=== PATIENT | female | born 1965 | race American Indian/Alaskan Native ===

== ENCOUNTER 2019-11-24 14:26 | Inpatient (IN) | payer OTHER ==
--- NOTE | 2019-11-24 15:14 | Event Note ---
ED Screening Note ED Screening Note: Dx'd with ventral hernia on Sunday Hesham Gongora, appt today 4:30 PM, due to severe pain, came to [facility] This initial assessment/diagnostic orders/clinical plan/treatment(s) is/are subject to change based on patients health status, clinical progression and re- assessment by fellow clinical providers in the ED. Further treatment and workup at subsequent clinical providers discretion. Patient/guardian urged not to elope from the ED as their condition may be serious if not clinically assessed and managed. Initial orders include: labs
[2019-11-24 15:50] LABS: Basophils % (Auto) 0.5 % (0.0-1.8); Eosinophils % (Auto) 0.2 % (0.0-4.3); Hemoglobin 15.2 gm/dl (10.1-14.3); Lymphocytes # (Auto) 1.4 K/mm3 (1.2-5.4); Lymphocytes % (Auto) 14.8 % (13.4-35.0); Mean Corpuscular HGB Conc 32 % (30-34); Mean Corpuscular Volume 72 fl (79-97); Monocytes # (Auto) 0.7 K/mm3 (0.0-0.8); Platelet Count 239 K/mm3 (140-440); Red Blood Count 6.65 M/mm3 (3.65-5.03); Red Cell Distribution Width 14.7 % (13.2-15.2)
[2019-11-24 16:11] LABS: BUN/Creatinine Ratio 24; Blood Urea Nitrogen 19 mg/dL (7-17); Calcium 9.8 mg/dL (8.4-10.2); Hemolysis Index 10
[2019-11-24] MEDS ORDERED: ONDANSETRON 4 MG/2 ML INJ IV ONE (23:45)
[2019-11-24] MEDS ORDERED: MORPHINE 2 MG/1 ML INJ IV ONE (23:45)
[2019-11-24] MEDS ORDERED: SODIUM CHLORIDE 0.9% 1000 ML 1,000 ML IV ONE (23:45)
--- NOTE | 2019-11-25 00:31 | Emergency Department Report ---
ED Abdominal Pain HPI - General Chief Complaint: Nausea/Vomiting/Diarrhea Stated Complaint: HERNIA REPAIR 11/21/PAIN Time Seen by Provider: 11/24/19 23:34 Source: patient Mode of arrival: Wheelchair Limitations: No Limitations - History of Present Illness Initial Comments: 54-year-old female presents to ED with complaint of abdominal pain. Patient states 3 days ago she began having mid abdominal pain, she was seen at an [place] [facility] and diagnosed with a ventral hernia. Patient states she was seen by the surgeon in the ER, states he was unable to reduce the hernia and advised her to see him in his office on today at 430. Patient states she has been taking pain medication at home, but states her abdominal pain became worse this afternoon, she decided to come to the emergency room instead of go to her appointment. MD Complaint: abdominal pain -: days(s) (3) Location: periumbilical Radiation: none Migration to: no migration Severity: severe Severity scale (0 -10): 10 Quality: aching, sharp Consistency: constant Improves With: nothing Worsens With: nothing Associated Symptoms: nausea, vomiting - Related Data Allergies Allergy/AdvReac Type Severity Reaction Status Date / Time acetaminophen [From Fioricet] Allergy Unknown Verified 11/25/19 03:49 butalbital [From Fioricet] Allergy Unknown Verified 11/25/19 03:49 caffeine [From Fioricet] Allergy Unknown Verified 11/25/19 03:49 oxycodone [From Percocet] Allergy Unknown Verified 11/25/19 03:49 ED Review of Systems ROS: Stated complaint: HERNIA REPAIR 11/21/PAIN Other details as noted in HPI Comment: All other systems reviewed and negative Constitutional: denies: chills, fever Gastrointestinal: abdominal pain, nausea, vomiting ED Past Medical Hx - Past Medical History Previous Medical History?: Yes Hx Diabetes: Yes - Surgical History Past Surgical History?: Yes Additional Surgical History: Hernia repair on 11/21/19 - Social History Smoking Status: Never Smoker Substance Use Type: None ED Physical Exam - General Limitations: No Limitations General appearance: alert, in no apparent distress, obese - Head Head exam: Present: atraumatic, normocephalic - Eye Eye exam: Present: normal appearance - ENT ENT exam: Present: mucous membranes moist - Neck Neck exam: Present: normal inspection - Respiratory Respiratory exam: Present: normal lung sounds bilaterally. Absent: respiratory distress - Cardiovascular Cardiovascular Exam: Present: normal rhythm, tachycardia - GI/Abdominal GI/Abdominal exam: Present: soft, tenderness, hernia (ventral). Absent: distended - Extremities Exam Extremities exam: Present: normal inspection - Neurological Exam Neurological exam: Present: alert, oriented X3 - Psychiatric Psychiatric exam: Present: normal affect, normal mood - Skin Skin exam: Present: warm, dry, intact, normal color ED Course Vital Signs 11/24/19 11/24/19 11/25/19 15:20 22:09 02:35 Temperature 98.1 F 98.6 F Pulse Rate 105 H 101 H 71 Respiratory 18 18 18 Rate Blood Pressure 121/77 132/87 Blood Pressure 153/75 [Right] O2 Sat by Pulse 100 96 99 Oximetry 11/25/19 03:41 Temperature Pulse Rate Respiratory 16 Rate Blood Pressure Blood Pressure [Right] O2 Sat by Pulse 99 Oximetry - Consultations Consultation #1: 11/25/19 01:55 Attempted reduction of pt's hernia, but unsuccessful. Spoke with Dr Curry. States place an NG tube. She will review the scans. 11/25/19 03:30 Dr Curry currently at bedside. Unable to reduce hernia. Will take pt to OR. ED Medical Decision Making - Lab Data Result diagrams: 11/24/19 15:38 11/24/19 15:38 - Radiology Data Radiology results: report reviewed, image reviewed - Medical Decision Making 54-year-old female with incarcerated ventral hernia and subsequent small bowel obstruction. NG tube placed. Patient seen by Dr. Curry who will be taken her to the OR. Vitals are stable. Patient is afebrile. Patient will be admitted by the hospitalist, Dr Conroy, for further management. - Differential Diagnosis bowel obstruction, incarcerated hernia Critical care attestation.: If time is entered above; I have spent that time in minutes in the direct care of this critically ill patient, excluding procedure time. ED Disposition Clinical Impression: Small bowel obstruction, Ventral hernia with bowel obstruction Disposition: OP ADMIT IP TO THIS HOSP Is pt being admited?: Yes Condition: Stable Time of Disposition: 03:08
--- NOTE | 2019-11-25 01:03 | Cat Scan Report ---
CT abdomen pelvis w con INDICATION: abd pain, ventral hernia. TECHNIQUE: All CT scans at this location are performed using the following dose modulation technique: Automated exposure control. Helical slices were obtained through the abdomen and pelvis. 100 cc of Omnipaque 30 0 is administered. COMPARISON: None available. FINDINGS: Abdomen: No acute abnormality is seen in the lower chest. The liver, spleen, pancreas, adrenal glands , and kidneys show no acute abnormality. There is a ventral hernia containing loop of small bowel. Th is causes a relatively high-grade mechanical small bowel obstruction. Pelvis: There calcified masses within the uterus characteristic of calcified fibroids. There is no ab scess. There is no free air. There is no adenopathy. On review of bone windows, no acute osseous abnormalities are seen. IMPRESSION: 1. There is a ventral hernia containing a loop of small bowel. This results in a high-grade mechanica l small bowel obstruction. Signer Name: Barry Solis MD Signed: 11/25/2019 12:59 AM Workstation Name: [id number]
[2019-11-25] MEDS ORDERED: MORPHINE 2 MG/1 ML INJ IV ONE (01:31)
[2019-11-25] MEDS ORDERED: METOCLOPRAMIDE 10 MG/2 ML INJ ONE (03:00)
[2019-11-25] MEDS ORDERED: METOCLOPRAMIDE 10 MG/2 ML INJ IV ONE (03:10)
--- NOTE | 2019-11-25 03:51 | Consultation ---
History of Present Illness Consult date: 11/25/19 Reason for consult: abdominal pain Chief complaint: abdominal pain - History of present illness History of present illness: 54 yo F with past medical history of asthma, morbid obesity, diabetes, hypertens ion who presented to the emergency room with 3 days of worsening supraumbilical abdominal pain. The pain is sharp and does not radiate. She states that when the pain started, she presented to an outside hospital emergency room at which time she was found to have a ventral hernia. Apparently she was seen by a surgeon and was told the hernia was reducible. Patient states she was supposed to follow-up with the surgeon yesterday afternoon, however started to experience nausea and vomiting and therefore presented to the [facility] emergency room. The emesis was nonbloody. She has never had symptoms like this before. She has been having a little bit of flatus and had a very small BM yesterday. No fevers, chills, chest pain, shortness of breath. Patient is on Invokana, losartan potassium, eyedrops for glaucoma, pravastatin, Ventolin inhaler as needed. Past History Past Medical History: diabetes, hypertension, hyperlipidemia, other (Asthma, herniated lumbar disks, glaucoma) Past Surgical History: hernia repair (Open umbilical - 2006), Other (Lumbar disc surgery, uterine artery embolization) Social history: no significant social history Family history: no significant family history Medications and Allergies Allergies Allergy/AdvReac Type Severity Reaction Status Date / Time acetaminophen [From Fioricet] Allergy Unknown Verified 11/25/19 03:49 butalbital [From Fioricet] Allergy Unknown Verified 11/25/19 03:49 caffeine [From Fioricet] Allergy Unknown Verified 11/25/19 03:49 oxycodone [From Percocet] Allergy Unknown Verified 11/25/19 03:49 Review of Systems All systems: negative (10 point review of systems was performed and negative except for that listed in HPI) Exam Vital Signs Temp Pulse Resp BP Pulse Ox 98.1 F 105 H 18 121/77 100 11/24/19 15:20 11/24/19 15:20 11/24/19 15:20 11/24/19 15:20 11/24/19 15:20 Narrative exam: General: Awake, alert, oriented x3. Moderate distress due to pain ENT: No scleral icterus or conjunctival pallor. An 18 Kiswahili NG tube is present in the right nare with bilious drainage CV: S1, S2 present Respiratory: No audible wheezes Abdomen: Soft, obese, tenderness to palpation supraumbilical and periumbilical. There is a supraumbilical ventral hernia that is moderately tender to palpation during attempt at reduction, firm, and cannot be reduced. There are no skin changes. There is a well-healed surgical scar at the umbilicus. Extremities: No clubbing, cyanosis, edema Results - Labs 11/24/19 15:38 11/24/19 15:38 Abnormal lab results 11/24/19 11/24/19 Range/Units 15:38 15:38 RBC 6.65 H (3.65-5.03) M/mm3 Hgb 15.2 H (10.1-14.3) gm/dl Hct 48.0 H (30.3-42.9) % MCV 72 L (79-97) fl MCH 23 L (28-32) pg Carlton % (Auto) 8.0 H (0.0-7.3) % Seg Neutrophils % 76.5 H (40.0-70.0) % Chloride 94.2 L (98-107) mmol/L Carbon Dioxide 21 L (22-30) mmol/L BUN 19 H (7-17) mg/dL Glucose 169 H (65-100) mg/dL Diabetes panel 11/24/19 Range/Units 15:38 Sodium 138 (137-145) mmol/L Potassium 3.7 (3.6-5.0) mmol/L Chloride 94.2 L (98-107) mmol/L Carbon Dioxide 21 L (22-30) mmol/L BUN 19 H (7-17) mg/dL Creatinine 0.8 (0.7-1.2) mg/dL Glucose 169 H (65-100) mg/dL Calcium 9.8 (8.4-10.2) mg/dL Calcium panel 11/24/19 Range/Units 15:38 Calcium 9.8 (8.4-10.2) mg/dL Pituitary panel 11/24/19 Range/Units 15:38 Sodium 138 (137-145) mmol/L Potassium 3.7 (3.6-5.0) mmol/L Chloride 94.2 L (98-107) mmol/L Carbon Dioxide 21 L (22-30) mmol/L BUN 19 H (7-17) mg/dL Creatinine 0.8 (0.7-1.2) mg/dL Glucose 169 H (65-100) mg/dL Calcium 9.8 (8.4-10.2) mg/dL Adrenal panel 11/24/19 Range/Units 15:38 Sodium 138 (137-145) mmol/L Potassium 3.7 (3.6-5.0) mmol/L Chloride 94.2 L (98-107) mmol/L Carbon Dioxide 21 L (22-30) mmol/L BUN 19 H (7-17) mg/dL Creatinine 0.8 (0.7-1.2) mg/dL Glucose 169 H (65-100) mg/dL Calcium 9.8 (8.4-10.2) mg/dL - Imaging CT scan - abdomen: report reviewed, image reviewed CT scan - pelvis: report reviewed, image reviewed Assessment and Plan 54-year-old female with 1. incarcerated ventral hernia 2. SBO 2/2 #1 Plan: 1. admit to hospitalist service 2. NPO 3. IVF 4. NGT to LIWS - 1300 cc of bilious fluid aspirated immediately upon insertion 5. DVT ppx 6. prn pain and nausea control 7. glucose control per 1' 8. Recommend OR for incarcerated ventral hernia with SBO as it could not be reduced at bedside. Discussed the procedure indication, risks, benefits, alternatives with the patient in detail. We discussed the possibility of a bowel resection if the small bowel incarcerated in the hernia is not viable. All questions were answered. Consent obtained for diagnostic laparoscopy, possible exploratory laparotomy, possible bowel resection, ventral hernia repair, possible mesh. Thank you for this consultation. Please call with any questions or concerns.
--- NOTE | 2019-11-25 03:59 | History and Physical Report ---
History of Present Illness Date of examination: 11/25/19 Date of admission: 11/25/19 Chief complaint: Abdominal pain History of present illness: Patient is a 54-year-old female with a past medical history of asthma, diabetes, hypertension and glaucoma who presents to ER with complaints of nausea, vomiting and abdominal pain since Sunday. Patient reports going to [facility] 11/21/19 where she states she was treated with pain and nausea medicine and discharged with an outpatient surgery follow-up appointment for 11/24/19 for a ventral hernia. Patient states worsening abdominal pain today so she was unable to make it to appointment and decided to come to the ER. She describes the pain as labor pains, rates it as 10 out of 10 located in upper quadrant accompanied with nausea and vomiting. She denies fever, chills, chest pains, diarrhea or constipation at this time. Past History Past Medical History: diabetes, hypertension, hyperlipidemia, other (Asthma, herniated lumbar disc, glaucoma) Past Surgical History: hernia repair (Open umbilical - 2006), Other (Lumbar disc surgery, uterine fibroids, deviated septum,) Social history: no significant social history Family history: no significant family history Medications and Allergies Allergies Allergy/AdvReac Type Severity Reaction Status Date / Time acetaminophen [From Fioricet] Allergy Unknown Verified 11/25/19 03:49 butalbital [From Fioricet] Allergy Unknown Verified 11/25/19 03:49 caffeine [From Fioricet] Allergy Unknown Verified 11/25/19 03:49 oxycodone [From Percocet] Allergy Unknown Verified 11/25/19 03:49 Review of Systems All systems: negative Gastrointestinal: abdominal pain, nausea, vomiting Exam - Physical Exam Narrative exam: - Physical Exam Narrative exam: General appearance: Present: No distress noted - EENT Eyes: Present: PERRL ENT: hearing intact, clear oral mucosa - Neck Neck: Present: supple, normal ROM - Respiratory Respiratory effort: normal Respiratory: bilateral: Clear to auscultation - Cardiovascular Heart Sounds: Present: S1 & S2. Absent: rub, click - Extremities Extremities: pulses symmetrical, No edema Peripheral Pulses: within normal limits - Abdominal General gastrointestinal: Present: Nausea, abdominal tenderness, non-distended, genitourinary: Present: normal - Integumentary Integumentary: Present: clear, warm, dry - Musculoskeletal Musculoskeletal: gait normal, strength equal bilaterally - Psychiatric Psychiatric: appropriate mood/affect, intact judgment & insight - Neurologic Neurologic: CNII-XII intact, moves all extremities - Constitutional Vitals: Temp Pulse Resp BP Pulse Ox 98.6 F 71 16 153/75 99 11/24/19 22:09 11/25/19 02:35 11/25/19 03:41 11/25/19 02:35 11/25/19 03:41 Results - Labs CBC & Chem 7: 11/24/19 15:38 11/24/19 15:38 Labs: Laboratory Last Values WBC 9.4 K/mm3 (4.5-11.0) 11/24/19 15:38 RBC 6.65 M/mm3 (3.65-5.03) H 11/24/19 15:38 Hgb 15.2 gm/dl (10.1-14.3) H 11/24/19 15:38 Hct 48.0 % (30.3-42.9) H 11/24/19 15:38 MCV 72 fl (79-97) L 11/24/19 15:38 MCH 23 pg (28-32) L 11/24/19 15:38 MCHC 32 % (30-34) 11/24/19 15:38 RDW 14.7 % (13.2-15.2) 11/24/19 15:38 Plt Count 239 K/mm3 (140-440) 11/24/19 15:38 Lymph % (Auto) 14.8 % (13.4-35.0) 11/24/19 15:38 Rice % (Auto) 8.0 % (0.0-7.3) H 11/24/19 15:38 Eos % (Auto) 0.2 % (0.0-4.3) 11/24/19 15:38 Baso % (Auto) 0.5 % (0.0-1.8) 11/24/19 15:38 Lymph # 1.4 K/mm3 (1.2-5.4) 11/24/19 15:38 Rice # 0.7 K/mm3 (0.0-0.8) 11/24/19 15:38 Eos # 0.0 K/mm3 (0.0-0.4) 11/24/19 15:38 Baso # 0.0 K/mm3 (0.0-0.1) 11/24/19 15:38 Seg Neutrophils % 76.5 % (40.0-70.0) H 11/24/19 15:38 Seg Neutrophils # 7.2 K/mm3 (1.8-7.7) 11/24/19 15:38 Sodium 138 mmol/L (137-145) 11/24/19 15:38 Potassium 3.7 mmol/L (3.6-5.0) 11/24/19 15:38 Chloride 94.2 mmol/L (98-107) L 11/24/19 15:38 Carbon Dioxide 21 mmol/L (22-30) L 11/24/19 15:38 Anion Gap 27 mmol/L 11/24/19 15:38 BUN 19 mg/dL (7-17) H 11/24/19 15:38 Creatinine 0.8 mg/dL (0.7-1.2) 11/24/19 15:38 Estimated GFR > 60 ml/min 11/24/19 15:38 BUN/Creatinine Ratio 24 % 11/24/19 15:38 Glucose 169 mg/dL (65-100) H 11/24/19 15:38 Calcium 9.8 mg/dL (8.4-10.2) 11/24/19 15:38 - Imaging and Cardiology CT scan - abdomen: report reviewed Imaging and Cardiology: CT abdomen pelvis w con INDICATION: abd pain, ventral hernia. TECHNIQUE: All CT scans at this location are performed using the following dose modulation technique: Automated exposure control. Helical slices were obtained through the abdomen and pelvis. 100 cc of Omnipaque 300 is administered. COMPARISON: None available. FINDINGS: Abdomen: No acute abnormality is seen in the lower chest. The liver, spleen, pancreas, adrenal glands, and kidneys show no acute abnormality. There is a ventral hernia containing loop of small bowel. This causes a relatively high-grade mechanical small bowel obstruction. Pelvis: There calcified masses within the uterus characteristic of calcified fibroids. There is no abscess. There is no free air. There is no adenopathy. On review of bone windows, no acute osseous abnormalities are seen. IMPRESSION: 1. There is a ventral hernia containing a loop of small bowel. This results in a high-grade mechanical small bowel obstruction. Assessment and Plan Assessment and plan: Patient seen in conjunction with Dr. Conroy, who agrees with plan of care. Small bowel obstruction -NPO -NGT to LIS -IV Protonix incarcerated ventral hernia -Surgery consulted in ED -Pain management Hypertension -Home meds once reconciled -Monitor BP q shift Morbid obesity -BMI 45.2kg -Counseled for diet and lifestyle modifications -May benefit from OP weight mgmt program DVT prophylaxis -SCDs bilateral extremities Advance Directives: No VTE prophylaxis?: Mechanical Reason for no VTE Prophylaxis: Surgical contraindication Plan of care discussed with patient/family: Yes
[2019-11-25] MEDS ORDERED: ONDANSETRON 4 MG/2 ML INJ IV PRN (04:07)
--- NOTE | 2019-11-25 04:14 | Anesthesia Day of Surgery ---
Anesthesia Day of Surgery - Day of Surgery Patient Examined: Yes Patient H&P Reviewed: Yes Patient is NPO: Yes Beta Blockers: No Cardiac Clearance: No Pulmonary Clearance: No Jeevan's Test: N/A
[2019-11-25] MEDS ORDERED: SODIUM CHLORIDE 0.9% 1000 ML 1,000 ML IV ONE (04:16)
--- NOTE | 2019-11-25 04:24 | Anesthesia Consultation ---
<BENITA ASCENCIO - Last Filed: 11/25/19 04:18> Anesthesia Consult and Med Hx Date of service: 11/25/19 - Airway Anesthetic Teeth Evaluation: Good ROM Head & Neck: Adequate Mental/Hyoid Distance: Adequate Mallampati Class: Class III Intubation Access Assessment: Possibly Difficult - Pulmonary Exam CTA: Yes - Cardiac Exam Cardiac Exam: RRR - Pre-Operative Health Status ASA Pre-Surgery Classification: ASA3, Emergency Proposed Anesthetic Plan: General - Pulmonary Hx Asthma: Yes Hx Respiratory Symptoms: No - Cardiovascular System Hx Hypertension: Yes Hx Coronary Artery Disease: No - Central Nervous System Hx Back Pain: Yes (h/o hearniated disk with Lumbar Laminectomy ~2004) - Endocrine Hx Non-Insulin Dependent Diabetes: Yes - Other Systems Hx Obesity: Yes - Additional Comments Anesthesia Medical History Comments: c/o abd pain, nausea, and vomiting since last Sunday. NG Tube present with large volume of gastric contents. Current ventral hernia with small bowel obstruction. For Diagnostic Lap. <LUIS LUNA - Last Filed: 11/25/19 06:27> Anesthesia Consult and Med Hx - Additional Comments Anesthesia Medical History Comments: Examined immediately prior to procedure. Plan GETA/RSI. Type and screen ordered.
[2019-11-25] MEDS ORDERED: fentaNYL 100 MCG/2 ML INJ ONE ×2 (04:34→08:36)
[2019-11-25] MEDS ORDERED: LIDOCAINE MPF (2%) 20 MG/1 ML VIAL 5 ML ONE (04:34)
[2019-11-25] MEDS ORDERED: ROCURONIUM 50 MG/5 ML INJ IV ONE (04:34)
[2019-11-25] MEDS ORDERED: SUCCINYLCHOLINE CHLORIDE 200 MG/10 ML INJ MDV ONE (04:34)
[2019-11-25] MEDS ORDERED: propofoL 200 MG/20 ML VIAL IV ONE (04:35)
[2019-11-25] MEDS ORDERED: DEXTROSE 50% IN WATER (25GM) 50 ML SYRINGE IV PRN (05:08)
[2019-11-25] MEDS ORDERED: BUPIVACAINE-EPINEPHRINE/PF 0.5%-1:200,000 (30 ML) VIAL INFILTRATI ONE ×2 (05:15→06:37)
[2019-11-25] MEDS ORDERED: LIDOCAINE (1%) 10 MG/1 ML VIAL 20 ML MDV ONE (05:15)
[2019-11-25] MEDS ORDERED: HYDROmorphone 1 MG/1 ML INJ ONE (05:46)
[2019-11-25] MEDS ORDERED: LACTATED RINGERS 1,000 ML ONE (05:51)
[2019-11-25] MEDS ORDERED: LIDOCAINE (1%) 10 MG/1 ML VIAL 20 ML MDV INFILTRATI ONE (06:38)
[2019-11-25] MEDS ORDERED: SODIUM CHLORIDE 0.9% IRR 1,500 ML BOTTLE IR ONE (06:38)
--- NOTE | 2019-11-25 08:32 | Post Operative Note ---
Date of procedure: 11/25/19 Pre-op diagnosis: incarcerated ventral hernia with small bowel obstruction Post-op diagnosis: same Findings: 1. Large amount of incarcerated omentum 2. knuckle of incarcerated small bowel which was the point of bowel obstruction - viable 3. initial fascial defect was 3.5 cm, extended to 7 cm in order to reduce hernia contents 4. 15cm x 11 cm ventright composite mesh used to repair defect Procedure: Diagnostic laparoscopy, lysis of adhesions, open reduction of hernia and repair of incisional hernia with mesh Anesthesia: COLLIN, local Surgeon: ROXY REDMAN Board Writer: FRANSISCO ABRAHAM Estimated blood loss: minimal Pathology: none (hernia sac) Specimen disposition: to lab Condition: stable Disposition: PACU
[2019-11-25] MEDS: HYDROmorphone 1 MG/1 ML INJ IV PRN ×2 (09:13→09:25)
[2019-11-25] MEDS: MORPHINE 2 MG/1 ML INJ IV PRN ×4 (09:36→22:54)
[2019-11-25] MEDS: INSULIN LISPRO 100 UNIT/ML SUB-Q SCH ×3 (14:51→17:49)
[2019-11-25] MEDS: HEPARIN 5,000 UNIT/1 ML VIAL SUB-Q SCH ×2 (15:08→22:54)
--- NOTE | 2019-11-25 15:08 | Operative Report ---
Operative Report Operative Report: Date of procedure: 11/25/19 Pre-op diagnosis: incarcerated ventral hernia with small bowel obstruction Post-op diagnosis: same Findings: 1. Large amount of incarcerated omentum 2. knuckle of incarcerated small bowel which was the point of bowel obstruction - viable 3. initial fascial defect was 3.5 cm, extended to 7 cm in order to reduce hernia contents 4. 15cm x 11 cm ventright composite mesh used to repair defect Procedure: Diagnostic laparoscopy, lysis of adhesions, open reduction of hernia and repair of incisional hernia with mesh Anesthesia: COLLIN, local Surgeon: ROXY REDMAN Software Engineer Advisor: FRANSISCO ABRAHAM Estimated blood loss: minimal Pathology: none (hernia sac) Specimen disposition: to lab Condition: stable Disposition: PACU HPI and indication: Patient is a 54-year-old female who presented to the emergency room with abdominal pain, nausea, vomiting. Her abdominal pain was localized near the umbilicus and she was found to have a incarcerated ventral hernia in this location on CT scan. Within the hernia was a loop of small bowel causing a small bowel obstruction. The hernia was not reducible at the bedside. Therefore it was recommended that the patient proceed to the operating room for diagnostic laparoscopy, possible exploratory laparotomy, repair of ventral hernia, possible bowel resection. All risks, benefits, alternatives to surgery were discussed with the patient questions answered. Consent was obtained. An NG tube was placed in the emergency room. Procedure in detail: Patient was identified in the preoperative area, taken back to the operating room, placed on operating table in supine position. After anesthesia was induced a Vences catheter was sterilely placed by the circulating nurse. The abdomen was then prepped and draped in usual sterile fashion and a timeout performed. Local anesthetic was infiltrated into all skin incision sites. A left upper quadrant izaiah incision was made through which a Veress needle was inserted. The Veress needle positioning was confirmed using the saline drop test and the abdomen insufflated to 15 mmHg. Once the abdomen was insufflated this incision was extended and a 5 mm Optiview trocar was placed. The abdomen was inspected and there was no underlying injury to any of the abdominal structures. We immediately identified a ventral hernia. There was a large amount of incarcerated omentum as well as a loop of small bowel. An additional left lower quadrant 5 mm trocar was placed under direct visualization. Attempts were made to reduce the hernia, however the hernia could not be reduced with manual pressure due to very small fascial defect and large amount of hernia contents. It was therefore decided to create an incision in the midline around the umbilicus at the area of the hernia. This was done using a 10 blade and dissection was carried down through the skin and subcutaneous tissue until the hernia was identified. There was a large chronically scarred hernia sac. The hernia sac was freed from the surrounding subcutaneous tissue using a combination of blunt dissection and electrocautery. Great care was taken to avoid any injury to the contents of the hernia sac. Once the entire hernia sac was circumferentially dissected, the fascia was identified and scored in order to elongate the fascial defect. Once this was done, the hernia sac was opened and the contents examined. There was a large amount of omentum incarcerated in the hernia, all of which was viable. The small bowel was identified in the hernia sac and although appeared bruised, it was viable. The small bowel within the hernia was distended, and the bowel distal to this was decompressed. Once the hernia contents were freed they were placed back into the abdomen in normal anatomic position. The fascial defect now measured approximately 7 cm. It was decided to repair the hernia with a mesh, however due to the patient's morbidly obese body habitus, it was decided to proceed with this laparoscopically. A 15 cm x 11 cm ventral light composite mesh was used to repair the defect. The 4 quadrants of the mesh were tagged with 2-0 PDS stay sutures. The mesh was rolled up and placed into the abdomen via the midline incision. The fascia was then closed using running #1 PDS suture. The abdomen was once again insufflated and the remainder of the procedure was performed laparoscopically. 2 additional 5 mm trocars were placed one in the right upper quadrant and one in the right lower quadrant. Adhesions from the omentum to the anterior abdominal wall in the upper abdomen as well as a portion of the falciform ligament were dissected using LigaSure. The fascial closure in the midline was visualized and intact. The mesh was laid flat and positioned appropriately in order to ensure appropriate coverage and overlap of the hernia defect. The stay sutures were pulled up through the fascia using the Paulo Dockery device in order to appropriately position the mesh. The sutures were then tied down. Using a nonabsorbable tacking device, the mesh was circumferentially tacked to the posterior fascia. A tack was placed at every 1 cm. At the end of the repair, the mesh was seen to lay flat. The omentum and small bowel which were incarcerated in the hernia were once again examined. There was no bleeding and the small bowel appeared viable. The ports were then removed under direct visualization and the abdomen desufflated. The skin incisions were closed with 4-0 Monocryl subcuticular stitches and skin glue. The midline incision was closed in a layered fashion. The deep subcutaneous tissue was approximated using 3-0 Vicryl interrupted sutures. The deep dermal layer was closed with 3-0 Vicryl interrupted sutures. The skin was closed with 4-0 Monocryl running subcuticular stitch and skin glue. An abdominal binder was applied. The Vences catheter was removed. At the end of the case, all sponge, instrument, sharp counts were correct x2. The patient was awoken from anesthesia, extubated, and taken to PACU in stable condition.
[2019-11-25] MEDS: PANTOPRAZOLE 40 MG INJ IV SCH ×2 (15:09→22:54)
[2019-11-26] MEDS: INSULIN LISPRO 100 UNIT/ML SUB-Q SCH ×4 (00:05→22:00)
[2019-11-26] MEDS: SODIUM CHLORIDE 0.9% 1000 ML 1,000 ML IV SCH ×3 (00:28→19:00)
[2019-11-26] MEDS: HYDROmorphone 1 MG/1 ML INJ IV PRN ×7 (00:29→21:56)
[2019-11-26] MEDS: MORPHINE 2 MG/1 ML INJ IV PRN ×2 (02:43→07:49)
[2019-11-26] MEDS: HEPARIN 5,000 UNIT/1 ML VIAL SUB-Q SCH ×3 (05:19→21:55)
[2019-11-26 06:40] LABS: Basophils % (Auto) 0.1 % (0.0-1.8); Lymphocytes % (Auto) 8.2 % (13.4-35.0); Mean Corpuscular HGB Conc 31 % (30-34); Mean Corpuscular Volume 73 fl (79-97); Monocytes # (Auto) 1.1 K/mm3 (0.0-0.8); Monocytes % (Auto) 9.3 % (0.0-7.3); Platelet Count 209 K/mm3 (140-440); Red Blood Count 5.69 M/mm3 (3.65-5.03); Red Cell Distribution Width 15.4 % (13.2-15.2)
[2019-11-26 06:42] LABS: Hematocrit 41.7 % (30.3-42.9); Hemoglobin 12.8 gm/dl (10.1-14.3)
[2019-11-26 07:29] LABS: BUN/Creatinine Ratio 30; Blood Urea Nitrogen 24 mg/dL (7-17); Calcium 8.8 mg/dL (8.4-10.2); Hemolysis Index 0
[2019-11-26] MEDS ORDERED: SODIUM CHLORIDE 0.9% 1000 ML 1,000 ML IV ONE (09:15)
[2019-11-26] MEDS: PANTOPRAZOLE 40 MG INJ IV SCH ×2 (09:51→21:56)
--- NOTE | 2019-11-26 12:42 | Progress Note ---
Assessment and Plan 54-year-old female status post Diagnostic laparoscopy, lysis of adhesions, open reduction of hernia and repair of incisional hernia with mesh, POD 1 1. incarcerated ventral hernia 2. SBO 2/2 #1 Plan: 1. NPO, may have ice chips 2. continue IVF. 1L NS bolus as patient with signs of dehydration 3. OOB/ambulate 4. IS/pulm toilet 5. clamp NGT until 1600 - will dc if passes clamp trial 6. DVT ppx 7. prn pain control. Will add toradol IV q8h 8. ABF Thank you for this consultation. Please call with any questions or concerns. Subjective Date of service: 11/26/19 Narrative: Patient seen and examined. She states that she was having abdominal pain near the midline abdominal incision overnight. She states it was too difficult to get up and go to the bathroom due to pain. She states her pain is better now that she has a well fitting abdominal binder. She denies any nausea or vomiting. She complains about sore throat from the NG tube. She has not had any flatus or bowel movement. Fevers, chills. Objective Vital Signs - 12hr 11/26/19 11/26/19 11/26/19 04:55 04:58 07:27 Temperature 97.9 F 98.9 F Pulse Rate 116 H Respiratory 16 20 18 Rate Blood Pressure 129/63 134/54 Blood Pressure [Right] O2 Sat by Pulse 96 Oximetry 11/26/19 11/26/19 07:30 11:08 Temperature 98.9 F 98.2 F Pulse Rate 111 H 115 H Respiratory 20 20 Rate Blood Pressure 158/76 Blood Pressure 134/54 [Right] O2 Sat by Pulse 94 94 Oximetry - General physical appearance Narrative Exam: General: Awake, alert, oriented x3. No apparent distress ENT: No scleral icterus or conjunctival pallor. NG tube with scant brown drainage in canister. Next CV: S1, S2 present Respiratory: No audible wheezes Abdomen: Soft, nondistended, obese, minimal tenderness to palpation near midline incision. All incisions are clean, dry, intact. Extremities: No clubbing, cyanosis, edema - Labs 11/26/19 05:58 11/26/19 05:58 Diabetes panel 11/26/19 Range/Units 05:58 Sodium 144 (137-145) mmol/L Potassium 4.2 (3.6-5.0) mmol/L Chloride 103.7 (98-107) mmol/L Carbon Dioxide 18 L (22-30) mmol/L BUN 24 H (7-17) mg/dL Creatinine 0.8 (0.7-1.2) mg/dL Glucose 134 H (65-100) mg/dL Calcium 8.8 (8.4-10.2) mg/dL Calcium panel 11/26/19 Range/Units 05:58 Calcium 8.8 (8.4-10.2) mg/dL Pituitary panel 11/26/19 Range/Units 05:58 Sodium 144 (137-145) mmol/L Potassium 4.2 (3.6-5.0) mmol/L Chloride 103.7 (98-107) mmol/L Carbon Dioxide 18 L (22-30) mmol/L BUN 24 H (7-17) mg/dL Creatinine 0.8 (0.7-1.2) mg/dL Glucose 134 H (65-100) mg/dL Calcium 8.8 (8.4-10.2) mg/dL Adrenal panel 11/26/19 Range/Units 05:58 Sodium 144 (137-145) mmol/L Potassium 4.2 (3.6-5.0) mmol/L Chloride 103.7 (98-107) mmol/L Carbon Dioxide 18 L (22-30) mmol/L BUN 24 H (7-17) mg/dL Creatinine 0.8 (0.7-1.2) mg/dL Glucose 134 H (65-100) mg/dL Calcium 8.8 (8.4-10.2) mg/dL
[2019-11-26] MEDS: KETOROLAC 30 MG/1 ML INJ IV SCH ×2 (14:24→21:55)
--- NOTE | 2019-11-26 15:26 | Progress Note ---
Assessment and Plan Assessment and plan: 54-year-old woman who presents to the hospital complaining of abdominal pain Incarcerated ventral hernia Status post surgery with mesh placement, open reduction of hernia on 11/25. Currently tolerating diet, advance diet as tolerated per general surgery SBO; resolving, NG tube was removed 11/26, tolerating diet Hypertension resume home meds Diabetes; Invokana on hold, sliding scale insulin as needed DVT prophylaxis with subcu heparin History Interval history: Review of systems Constitutional: No fevers, no malaise, no joint pains CVS: No chest pain, no orthopnea, no dyspnea on exertion, no pedal edema GI: No abdominal pain, no diarrhea, no vomiting, no constipation Respiratory: no wheezing, no coughing Hospitalist Physical - Physical exam Narrative exam: General.: Appears well, no distress, nontoxic HEENT: Moist mucous membranes, extraocular muscles intact, no lymphadenopathy Neck: supple Cardiac: S1-S2 heard Lungs: clear to auscultation bilaterally Abdomen: soft , nontender, nondistended, bowel sounds positive Extremities: no edema clubbing or cyanosis Skin: no rash or lesions Neurologic: no gross focal deficits Psych: calm, and cooperative - Constitutional Vitals: Temp Pulse Resp BP Pulse Ox 98.2 F 115 H 20 158/76 94 11/26/19 11:08 11/26/19 11:08 11/26/19 11:08 11/26/19 11:08 11/26/19 11:08 Results - Labs CBC & Chem 7: 11/26/19 05:58 11/26/19 05:58 Labs: Laboratory Last Values WBC 11.9 K/mm3 (4.5-11.0) H 11/26/19 05:58 RBC 5.69 M/mm3 (3.65-5.03) H 11/26/19 05:58 Hgb 12.8 gm/dl (10.1-14.3) 11/26/19 05:58 Hct 41.7 % (30.3-42.9) D 11/26/19 05:58 MCV 73 fl (79-97) L 11/26/19 05:58 MCH 23 pg (28-32) L 11/26/19 05:58 MCHC 31 % (30-34) 11/26/19 05:58 RDW 15.4 % (13.2-15.2) H 11/26/19 05:58 Plt Count 209 K/mm3 (140-440) 11/26/19 05:58 Lymph % (Auto) 8.2 % (13.4-35.0) L 11/26/19 05:58 Alexander % (Auto) 9.3 % (0.0-7.3) H 11/26/19 05:58 Eos % (Auto) 0.0 % (0.0-4.3) 11/26/19 05:58 Baso % (Auto) 0.1 % (0.0-1.8) 11/26/19 05:58 Lymph # 1.0 K/mm3 (1.2-5.4) L 11/26/19 05:58 Alexander # 1.1 K/mm3 (0.0-0.8) H 11/26/19 05:58 Eos # 0.0 K/mm3 (0.0-0.4) 11/26/19 05:58 Baso # 0.0 K/mm3 (0.0-0.1) 11/26/19 05:58 Seg Neutrophils % 82.4 % (40.0-70.0) H 11/26/19 05:58 Seg Neutrophils # 9.8 K/mm3 (1.8-7.7) H 11/26/19 05:58 Sodium 144 mmol/L (137-145) 11/26/19 05:58 Potassium 4.2 mmol/L (3.6-5.0) 11/26/19 05:58 Chloride 103.7 mmol/L (98-107) 11/26/19 05:58 Carbon Dioxide 18 mmol/L (22-30) L 11/26/19 05:58 Anion Gap 27 mmol/L 11/26/19 05:58 BUN 24 mg/dL (7-17) H 11/26/19 05:58 Creatinine 0.8 mg/dL (0.7-1.2) 11/26/19 05:58 Estimated GFR > 60 ml/min 11/26/19 05:58 BUN/Creatinine Ratio 30 % 11/26/19 05:58 Glucose 134 mg/dL (65-100) H 11/26/19 05:58 POC Glucose 117 (70-105) H 02/19/20 11:38 Calcium 8.8 mg/dL (8.4-10.2) 11/26/19 05:58 Blood Type A POSITIVE 11/25/19 04:38 Antibody Screen Negative 11/25/19 04:38 Active Medications - Current Medications Current Medications: Generic Name Dose Route Start Last Admin Trade Name Freq PRN Reason Stop Dose Admin Dextrose 50 ml 11/25/19 05:08 D50w (25gm) Syringe IV Q30MIN PRN Hypoglycemia Protocol Heparin Sodium (Porcine) 5,000 unit 11/25/19 14:00 11/26/19 14:24 Heparin SUB-Q 5,000 unit Q8HR CARMELITA Administration Hydromorphone HCl 0.5 mg 11/25/19 08:32 11/26/19 12:53 Dilaudid IV 0.5 mg Q3H PRN Administration Pain , Severe (7-10) Sodium Chloride 1,000 mls @ 125 mls/hr 11/25/19 04:15 11/26/19 09:51 Nacl 0.9% 1000 Ml IV 125 mls/hr DIRECT CARMELITA Administration Insulin Human Lispro 0 unit 11/25/19 06:00 11/26/19 06:24 Humalog SUB-Q Not Given Q6HR CARMELITA Protocol Ketorolac Tromethamine 30 mg 11/26/19 14:00 11/26/19 14:24 Toradol IV 12/01/19 13:59 30 mg Q8H CARMELITA Administration Ondansetron HCl 4 mg 11/25/19 04:07 Zofran IV Q8H PRN Nausea And Vomiting Pantoprazole Sodium 40 mg 11/25/19 10:00 11/26/19 09:51 Protonix IV 40 mg BID CARMELITA Administration
[2019-11-26] MEDS ORDERED: hydrALAZINE 20 MG/1 ML INJ IV PRN (17:38)
[2019-11-26] MEDS ORDERED: DEXTROSE 50% IN WATER (25GM) 50 ML SYRINGE IV PRN (17:38)
[2019-11-26] MEDS: diphenhydrAMINE 25 MG CAP PO PRN (23:24)
[2019-11-27] MEDS: SODIUM CHLORIDE 0.9% 1000 ML 1,000 ML IV SCH (06:17)
[2019-11-27] MEDS: HEPARIN 5,000 UNIT/1 ML VIAL SUB-Q SCH ×3 (06:17→22:01)
[2019-11-27] MEDS: KETOROLAC 30 MG/1 ML INJ IV SCH ×3 (06:17→22:04)
[2019-11-27] MEDS: INSULIN LISPRO 100 UNIT/ML SUB-Q SCH ×3 (07:03→18:28)
[2019-11-27] MEDS ORDERED: oxyCODONE /ACETAMINOPHEN 5-325MG TAB PO PRN (10:22)
--- NOTE | 2019-11-27 10:25 | Progress Note ---
Assessment and Plan 54-year-old female status post Diagnostic laparoscopy, lysis of adhesions, open reduction of hernia and repair of incisional hernia with mesh, POD 2 1. incarcerated ventral hernia 2. SBO 2/2 #1 Plan: 1. Passed clamp trial and NGT removed yesterday 2. continue clear liquid diet 3. change IVF to maintenance 4. prn pain control - will transition to oral percocet 5. IS/pulm toilet 6. OOB/ambulate 7. DVT ppx 8. ok to shower 9. ABF 10. Abdominal binder at all times Thank you for this consultation. Please call with any questions or concerns. Objective Vital Signs - 12hr 11/27/19 11/27/19 11/27/19 01:48 04:21 06:17 Temperature 97.7 F Pulse Rate 91 H Respiratory 20 20 18 Rate Blood Pressure 103/54 [Right] O2 Sat by Pulse 98 Oximetry 11/27/19 08:00 Temperature 98 F Pulse Rate 95 H Respiratory 18 Rate Blood Pressure 107/54 [Right] O2 Sat by Pulse 97 Oximetry - Labs 11/26/19 05:58 11/26/19 05:58 Diabetes panel 11/27/19 Range/Units 06:58 Hemoglobin A1c 6.8 H (4-6) %
[2019-11-27] MEDS: HYDROmorphone 1 MG/1 ML INJ IV PRN ×2 (10:53→18:27)
[2019-11-27] MEDS: PRAVASTATIN 20 MG TAB PO SCH (10:58)
[2019-11-27] MEDS: LOSARTAN 25 MG TAB PO SCH (10:58)
[2019-11-27] MEDS: PANTOPRAZOLE 40 MG INJ IV SCH ×2 (10:58→22:02)
[2019-11-27] MEDS ORDERED: SODIUM CHLORIDE 0.45% 1000 ML 1,000 ML IV SCH (11:00)
[2019-11-27] MEDS: LATANOPROST 0.005% OPHTH SOLN 2.5 ML OU SCH (11:02)
--- NOTE | 2019-11-27 12:10 | Progress Note ---
Assessment and Plan Assessment and plan: 54-year-old woman who presents to the hospital complaining of abdominal pain Incarcerated ventral hernia Status post surgery with mesh placement, open reduction of hernia on 11/25. Currently tolerating diet, advance diet as tolerated per general surgery SBO; resolving, NG tube was removed 11/26, tolerating diet Hypertension resume home meds Diabetes; Invokana on hold, sliding scale insulin as needed DVT prophylaxis with subcu heparin History Interval history: Review of systems Constitutional: No fevers, no malaise, no joint pains CVS: No chest pain, no orthopnea, no dyspnea on exertion, no pedal edema GI: No abdominal pain, no diarrhea, no vomiting, no constipation Respiratory: no wheezing, no coughing Hospitalist Physical - Physical exam Narrative exam: General.: Appears well, no distress, nontoxic HEENT: Moist mucous membranes, extraocular muscles intact, no lymphadenopathy Neck: supple Cardiac: S1-S2 heard Lungs: clear to auscultation bilaterally Abdomen: soft , nontender, nondistended, bowel sounds positive Extremities: no edema clubbing or cyanosis Skin: no rash or lesions Neurologic: no gross focal deficits Psych: calm, and cooperative - Constitutional Vitals: Temp Pulse Resp BP Pulse Ox 98 F 95 H 18 107/54 97 11/27/19 08:00 11/27/19 08:00 11/27/19 08:00 11/27/19 08:00 11/27/19 08:00 Results - Labs CBC & Chem 7: 11/26/19 05:58 11/26/19 05:58 Labs: Laboratory Last Values WBC 11.9 K/mm3 (4.5-11.0) H 11/26/19 05:58 RBC 5.69 M/mm3 (3.65-5.03) H 11/26/19 05:58 Hgb 12.8 gm/dl (10.1-14.3) 11/26/19 05:58 Hct 41.7 % (30.3-42.9) D 11/26/19 05:58 MCV 73 fl (79-97) L 11/26/19 05:58 MCH 23 pg (28-32) L 11/26/19 05:58 MCHC 31 % (30-34) 11/26/19 05:58 RDW 15.4 % (13.2-15.2) H 11/26/19 05:58 Plt Count 209 K/mm3 (140-440) 11/26/19 05:58 Lymph % (Auto) 8.2 % (13.4-35.0) L 11/26/19 05:58 Grant % (Auto) 9.3 % (0.0-7.3) H 11/26/19 05:58 Eos % (Auto) 0.0 % (0.0-4.3) 11/26/19 05:58 Baso % (Auto) 0.1 % (0.0-1.8) 11/26/19 05:58 Lymph # 1.0 K/mm3 (1.2-5.4) L 11/26/19 05:58 Grant # 1.1 K/mm3 (0.0-0.8) H 11/26/19 05:58 Eos # 0.0 K/mm3 (0.0-0.4) 11/26/19 05:58 Baso # 0.0 K/mm3 (0.0-0.1) 11/26/19 05:58 Seg Neutrophils % 82.4 % (40.0-70.0) H 11/26/19 05:58 Seg Neutrophils # 9.8 K/mm3 (1.8-7.7) H 11/26/19 05:58 Sodium 144 mmol/L (137-145) 11/26/19 05:58 Potassium 4.2 mmol/L (3.6-5.0) 11/26/19 05:58 Chloride 103.7 mmol/L (98-107) 11/26/19 05:58 Carbon Dioxide 18 mmol/L (22-30) L 11/26/19 05:58 Anion Gap 27 mmol/L 11/26/19 05:58 BUN 24 mg/dL (7-17) H 11/26/19 05:58 Creatinine 0.8 mg/dL (0.7-1.2) 11/26/19 05:58 Estimated GFR > 60 ml/min 11/26/19 05:58 BUN/Creatinine Ratio 30 % 11/26/19 05:58 Glucose 134 mg/dL (65-100) H 11/26/19 05:58 POC Glucose 133 (70-105) H 11/27/19 11:55 Hemoglobin A1c 6.8 % (4-6) H 11/27/19 06:58 Calcium 8.8 mg/dL (8.4-10.2) 11/26/19 05:58 Blood Type A POSITIVE 11/25/19 04:38 Antibody Screen Negative 11/25/19 04:38 Active Medications - Current Medications Current Medications: Generic Name Dose Route Start Last Admin Trade Name Freq PRN Reason Stop Dose Admin Dextrose 50 ml 11/26/19 17:38 D50w (25gm) Syringe IV Q30MIN PRN Hypoglycemia Protocol Diphenhydramine HCl 25 mg 11/26/19 22:21 11/26/19 23:24 Benadryl PO 25 mg Q6H PRN Administration Itching Heparin Sodium (Porcine) 5,000 unit 11/25/19 14:00 11/27/19 06:17 Heparin SUB-Q 5,000 unit Q8HR CARMELITA Administration Hydralazine HCl 10 mg 11/26/19 17:38 Apresoline IV Q4HR PRN BP >160/100 Hydromorphone HCl 0.5 mg 11/25/19 08:32 11/27/19 10:53 Dilaudid IV 0.5 mg Q3H PRN Administration Pain , Severe (7-10) Sodium Chloride 1,000 mls @ 75 mls/hr 11/27/19 11:00 Nacl 0.45% 1000 Ml IV DIRECT [facility] Insulin Human Lispro 0 unit 11/26/19 22:00 11/27/19 07:03 Humalog SUB-Q Not Given ACHS [facility] Protocol Ketorolac Tromethamine 30 mg 11/26/19 14:00 11/27/19 06:17 Toradol IV 12/01/19 13:59 30 mg Q8H CARMELITA Administration Latanoprost 1 drops 11/27/19 10:00 11/27/19 11:02 Latanoprost 0.005% OU 1 drops DAILY CARMELITA Administration Losartan Potassium 25 mg 11/27/19 10:00 11/27/19 10:58 Cozaar PO 25 mg DAILY CARMELITA Administration Ondansetron HCl 4 mg 11/25/19 04:07 Zofran IV Q8H PRN Nausea And Vomiting Oxycodone/Acetaminophen 2 tab 11/27/19 10:22 Percocet 5/325 PO Q4H PRN Pain, Moderate (4-6) Pantoprazole Sodium 40 mg 11/25/19 10:00 11/27/19 10:58 Protonix IV 40 mg BID CARMELITA Administration Pravastatin Sodium 20 mg 11/27/19 10:00 11/27/19 10:58 Pravachol PO 20 mg DAILY CARMELITA Administration
[2019-11-27] MEDS: HYDROcodone/ACETAMINOPHEN 5-325 MG TAB PO PRN ×2 (15:04→22:02)
[2019-11-27] MEDS: diphenhydrAMINE 25 MG CAP PO PRN (20:10)
[2019-11-28] MEDS: HYDROmorphone 1 MG/1 ML INJ IV PRN (03:06)
[2019-11-28] MEDS: HEPARIN 5,000 UNIT/1 ML VIAL SUB-Q SCH ×3 (05:33→22:20)
[2019-11-28] MEDS: diphenhydrAMINE 25 MG CAP PO PRN ×2 (05:33→22:19)
[2019-11-28] MEDS: KETOROLAC 30 MG/1 ML INJ IV SCH ×2 (07:38→16:00)
[2019-11-28] MEDS: HYDROcodone/ACETAMINOPHEN 5-325 MG TAB PO PRN ×2 (07:39→22:19)
[2019-11-28] MEDS: INSULIN LISPRO 100 UNIT/ML SUB-Q SCH ×4 (07:40→16:57)
[2019-11-28] MEDS: LOSARTAN 25 MG TAB PO SCH (10:00)
[2019-11-28] MEDS: PANTOPRAZOLE 40 MG INJ IV SCH (10:00)
[2019-11-28] MEDS: PRAVASTATIN 20 MG TAB PO SCH (10:00)
--- NOTE | 2019-11-28 10:47 | Progress Note ---
Assessment and Plan 54-year-old female status post Diagnostic laparoscopy, lysis of adhesions, open reduction of hernia and repair of incisional hernia with mesh, POD 3 1. incarcerated ventral hernia 2. SBO 2/2 #1 Plan: 1. adv to soft diet 2. dc IVF 3. OOB/ambulate 4. abdominal binder 5. continue PO pain regimen, IV pain medication for breakthrough pain 6. IS/pulm toilet 7. DVT ppx DC planning tomorrow am. Please call with any questions or concerns. Subjective Date of service: 11/28/19 Narrative: Pt seen and examined. No acute complaints. She is passing flatus. She has been ambulating. No nausea, vomiting. She is tolerating clear liquids. The patient states that her pain 10 becomes severe at times, especially when she is more mobile. At that time, she requires IV pain medication for breakthrough pain. Otherwise, the [place] is working well. Objective Vital Signs - 12hr 11/28/19 11/28/19 11/28/19 00:11 04:57 07:26 Temperature 97.8 F 98.2 F 98.6 F Pulse Rate 83 89 84 Respiratory 17 16 18 Rate Blood Pressure 98/58 121/61 124/53 O2 Sat by Pulse 98 99 98 Oximetry - General physical appearance Narrative Exam: Gen: AAOx3. NAD CV: s1, S2+ Resp: even and unlabored Abd: soft, ND, NT. Incisions c/d/i. Abdominal binder in place Ext: no c/c/e - Labs 11/26/19 05:58 11/26/19 05:58
[2019-11-28] MEDS ORDERED: FLUCONAZOLE 100 MG TAB PO ONE (12:00)
--- NOTE | 2019-11-28 13:36 | Progress Note ---
Assessment and Plan Assessment and plan: 54-year-old woman who presents to the hospital complaining of abdominal pain Incarcerated ventral hernia Status post surgery with mesh placement, open reduction of hernia on 11/25. Currently tolerating diet, advance diet as tolerated per general surgery SBO; resolving, NG tube was removed 11/26, tolerating diet Hypertension resume home meds Diabetes; Invokana on hold, sliding scale insulin as needed DVT prophylaxis with subcu heparin History Interval history: Review of systems Constitutional: No fevers, no malaise, no joint pains CVS: No chest pain, no orthopnea, no dyspnea on exertion, no pedal edema GI: No abdominal pain, no diarrhea, no vomiting, no constipation Respiratory: no wheezing, no coughing Hospitalist Physical - Physical exam Narrative exam: General.: Appears well, no distress, nontoxic HEENT: Moist mucous membranes, extraocular muscles intact, no lymphadenopathy Neck: supple Cardiac: S1-S2 heard Lungs: clear to auscultation bilaterally Abdomen: soft , nontender, nondistended, bowel sounds positive Extremities: no edema clubbing or cyanosis Skin: no rash or lesions Neurologic: no gross focal deficits Psych: calm, and cooperative - Constitutional Vitals: Temp Pulse Resp BP Pulse Ox 98.2 F 86 18 95/46 95 11/28/19 12:04 11/28/19 12:04 11/28/19 12:04 11/28/19 12:04 11/28/19 12:04 Results - Labs CBC & Chem 7: 11/26/19 05:58 11/26/19 05:58 Labs: Laboratory Last Values WBC 11.9 K/mm3 (4.5-11.0) H 11/26/19 05:58 RBC 5.69 M/mm3 (3.65-5.03) H 11/26/19 05:58 Hgb 12.8 gm/dl (10.1-14.3) 11/26/19 05:58 Hct 41.7 % (30.3-42.9) D 11/26/19 05:58 MCV 73 fl (79-97) L 11/26/19 05:58 MCH 23 pg (28-32) L 11/26/19 05:58 MCHC 31 % (30-34) 11/26/19 05:58 RDW 15.4 % (13.2-15.2) H 11/26/19 05:58 Plt Count 209 K/mm3 (140-440) 11/26/19 05:58 Lymph % (Auto) 8.2 % (13.4-35.0) L 11/26/19 05:58 Coles % (Auto) 9.3 % (0.0-7.3) H 11/26/19 05:58 Eos % (Auto) 0.0 % (0.0-4.3) 11/26/19 05:58 Baso % (Auto) 0.1 % (0.0-1.8) 11/26/19 05:58 Lymph # 1.0 K/mm3 (1.2-5.4) L 11/26/19 05:58 Coles # 1.1 K/mm3 (0.0-0.8) H 11/26/19 05:58 Eos # 0.0 K/mm3 (0.0-0.4) 11/26/19 05:58 Baso # 0.0 K/mm3 (0.0-0.1) 11/26/19 05:58 Seg Neutrophils % 82.4 % (40.0-70.0) H 11/26/19 05:58 Seg Neutrophils # 9.8 K/mm3 (1.8-7.7) H 11/26/19 05:58 Sodium 144 mmol/L (137-145) 11/26/19 05:58 Potassium 4.2 mmol/L (3.6-5.0) 11/26/19 05:58 Chloride 103.7 mmol/L (98-107) 11/26/19 05:58 Carbon Dioxide 18 mmol/L (22-30) L 11/26/19 05:58 Anion Gap 27 mmol/L 11/26/19 05:58 BUN 24 mg/dL (7-17) H 11/26/19 05:58 Creatinine 0.8 mg/dL (0.7-1.2) 11/26/19 05:58 Estimated GFR > 60 ml/min 11/26/19 05:58 BUN/Creatinine Ratio 30 % 11/26/19 05:58 Glucose 134 mg/dL (65-100) H 11/26/19 05:58 POC Glucose 154 (70-105) H 11/28/19 11:46 Hemoglobin A1c 6.8 % (4-6) H 11/27/19 06:58 Calcium 8.8 mg/dL (8.4-10.2) 11/26/19 05:58 Blood Type A POSITIVE 11/25/19 04:38 Antibody Screen Negative 11/25/19 04:38 Active Medications - Current Medications Current Medications: Generic Name Dose Route Start Last Admin Trade Name Freq PRN Reason Stop Dose Admin Acetaminophen/Hydrocodone Bitart 2 each 11/27/19 14:27 11/28/19 07:39 Traver 5/325 PO 2 each Q4H PRN Administration Pain, Moderate (4-6) Dextrose 50 ml 11/26/19 17:38 D50w (25gm) Syringe IV Q30MIN PRN Hypoglycemia Protocol Diphenhydramine HCl 25 mg 11/26/19 22:21 11/28/19 05:33 Benadryl PO 25 mg Q6H PRN Administration Itching Heparin Sodium (Porcine) 5,000 unit 11/25/19 14:00 11/28/19 05:33 Heparin SUB-Q 5,000 unit Q8HR CARMELITA Administration Hydralazine HCl 10 mg 11/26/19 17:38 Apresoline IV Q4HR PRN BP >160/100 Hydromorphone HCl 0.5 mg 11/25/19 08:32 11/28/19 03:06 Dilaudid IV 0.5 mg Q3H PRN Administration Pain , Severe (7-10) Insulin Human Lispro 0 unit 11/26/19 22:00 11/28/19 07:40 Humalog SUB-Q Not Given ACHS CARMELITA Protocol Ketorolac Tromethamine 30 mg 11/26/19 14:00 11/28/19 07:38 Toradol IV 12/01/19 13:59 30 mg Q8H CARMELITA Administration Latanoprost 1 drops 11/27/19 10:00 11/27/19 11:02 Latanoprost 0.005% OU 1 drops DAILY CARMELITA Administration Losartan Potassium 25 mg 11/27/19 10:00 11/28/19 10:00 Cozaar PO 25 mg DAILY CARMELITA Administration Ondansetron HCl 4 mg 11/25/19 04:07 Zofran IV Q8H PRN Nausea And Vomiting Pantoprazole Sodium 40 mg 11/25/19 10:00 11/28/19 10:00 Protonix IV 11/28/19 14:00 40 mg BID CARMELITA Administration Pantoprazole Sodium 40 mg 11/28/19 22:00 Protonix PO BID CARMELITA Pravastatin Sodium 20 mg 11/27/19 10:00 11/28/19 10:00 Pravachol PO 20 mg DAILY CARMELITA Administration Nutrition/Malnutrition Assess - Dietary Evaluation Nutrition/Malnutrition Findings: Nutrition Notes Start: 11/27/19 12:23 Freq: Status: Active Protocol: Document 11/27/19 12:23 CW (Rec: 11/27/19 12:48 CW [id number]) Co-Sign 11/27/19 12:23 LP Nutrition Notes Need for Assessment generated from: MD Order,Education Initial or Follow up Assessment Current Diagnosis Diabetes,Hypertension,Small Bowel Obstruction Other Pertinent Diagnosis s/p surgery for hernia Current Diet cl. liq diet Labs/Tests HgbA1c 6.8 POC BG 117 Pertinent Medications NS at 135 ml/hr Humalog Height 5 ft 8 in Weight 134.71 kg Usual Body Weight 135 kg [facility] Body Weight (kg) 63.63 BMI 45.1 Intake Prior to Admission Fair Weight change and time frame no wt change Weight Status Morbidly Obese Subjective/Other Information MD Consult for diet education. Pt denies current feelings of N/V/D and wt loss. Pt reports a UBW of 297 lbs. Pt states that she has a good appetite and tolerating cl. liq diet well. Discussed ONS usage with the pt. ONS Clear ordered for TID. Discussed diet education regarding heart healthy diet and DM. Pt stated that she did not need education D/T recieving through education during outpatient DM workshop at [facility]. Pt states sipping on liquid meals throughout the day. Burn Absent Trauma Absent GI Symptoms None Current % PO Good (75-100%) Minimum of two criteria No physical signs of malnutrition #1 Nutrition Diagnosis Inadequate oral intake Etiology s/p surgery for hernia As Evidenced by Signs and Symptoms cl liq diet, need for ONS Is patient on ventilator? No Is Patient Ambulatory and/or Out of Bed Yes REE-(Woods-St. Jeor-ambulatory/OOB) [ 7250.780 NUTR.[id number]] Kcal/Kg value to use for calculation 16 Approximate Energy Requirements Using 2155 kcal/Kg Calculation Used for Recommendations Kcal/kg Additional Notes protein needs: 80 - 99 g (0.8 - 1 g/kgAdBW) fluid needs: 1 ml/kcal Nutrition Intervention Change Diet Order: advance diet as medically feasible Add Supplement/Snack (indicate name/kcal Ensure Clear TID /protein ) Provides kCal: 720 Provides Protein (gm) 24 Teaching Recipient Patient Learning Readiness Good Teaching Methods Discussion Response to Teaching Return demonstration,Verbalize understanding Barriers to Learning No Barriers RD phone number provided Yes Patient aware of follow up options Yes Goal #1 Meet at least 60% of kcal/pro needs via ONS and cl. liq diet Goal #2 diet advancement Anticipated Discharge Needs: unable to determine at this time Follow-Up By: 12/02/19 Additional Comments F/U diet advancement
[2019-11-28] MEDS: LATANOPROST 0.005% OPHTH SOLN 2.5 ML OU SCH (19:57)
[2019-11-28] MEDS: PANTOPRAZOLE 40 MG TAB PO SCH (22:19)
[2019-11-29] MEDS: INSULIN LISPRO 100 UNIT/ML SUB-Q SCH ×3 (03:02→12:00)
[2019-11-29] MEDS: KETOROLAC 30 MG/1 ML INJ IV SCH ×3 (03:03→14:32)
[2019-11-29] MEDS: HEPARIN 5,000 UNIT/1 ML VIAL SUB-Q SCH ×2 (08:00→14:32)
[2019-11-29] MEDS: HYDROcodone/ACETAMINOPHEN 5-325 MG TAB PO PRN (08:01)
[2019-11-29] MEDS: LATANOPROST 0.005% OPHTH SOLN 2.5 ML OU SCH (09:17)
[2019-11-29] MEDS: LOSARTAN 25 MG TAB PO SCH (09:18)
[2019-11-29] MEDS: PRAVASTATIN 20 MG TAB PO SCH (09:18)
[2019-11-29] MEDS: PANTOPRAZOLE 40 MG TAB PO SCH (09:18)
--- NOTE | 2019-11-29 10:42 | Progress Note ---
Assessment and Plan 54-year-old female status post Diagnostic laparoscopy, lysis of adhesions, open reduction of hernia and repair of incisional hernia with mesh, POD 4 1. incarcerated ventral hernia 2. SBO 2/2 #1 Plan: 1. soft diet 2. OOB/ambulate 3. abdominal binder at all times 4. continue PO pain regimen 5. IS/pulm toilet Ok to dc home from surgery standpoint. Pt to follow up in surgery clinic in 2weeks. Written dc instructions left on chart. Please call with any questions or concerns. Subjective Date of service: 11/29/19 Narrative: Pt seen and examined. c/o moderate pain when moving around which is controlled with PO pain medications. No f/c, cp, sob. Juwan soft diet. Had 2 BMs today. No n/v. Pt feels she is ready to go home. Objective Vital Signs - 12hr 11/28/19 11/29/19 11/29/19 23:32 05:29 07:29 Temperature 98.3 F 98.0 F 98.2 F Pulse Rate 94 H 88 98 H Respiratory 16 16 18 Rate Blood Pressure 140/60 139/70 144/68 O2 Sat by Pulse 98 99 99 Oximetry 11/29/19 09:18 Temperature Pulse Rate 98 H Respiratory Rate Blood Pressure 144/68 O2 Sat by Pulse Oximetry - General physical appearance Narrative Exam: Gen: AAOx3. NAD CV: S1, S2+ resp: even and unlabored Abd: soft, NT, ND. Incisions c/d/i. Abd binder in place Ext: no c/c/e - Labs 11/26/19 05:58 11/26/19 05:58
[2019-11-29] MEDS: HYDROmorphone 1 MG/1 ML INJ IV PRN (11:10)
--- NOTE | 2019-11-29 11:18 | Discharge Summary ---
Providers - Providers Date of Admission: 11/25/19 05:56 Attending physician: LUCIE HULL MD 11/25/19 03:41 Consult to Physician [CONS] Stat Comment: Consulting Provider: ROXY REDMAN Physician Instructions: Reason For Exam: incarcerated hernia, bowel obstruction 11/26/19 17:38 Consult to Dietitian/Nutrition [CONS] Routine Physician Instructions: Reason For Exam: Reason for Consult: Diet education Primary care physician: KIKE SANTIAGO Hospitalization Condition: Stable Hospital course: 54-year-old woman who presents to the hospital complaining of abdominal pain Incarcerated ventral hernia Status post surgery with mesh placement, open reduction of hernia on 11/25. Currently tolerating diet, advanced diet as tolerated per general surgery, improved, tolerated soft diet SBO; resolving, NG tube was removed 11/26, tolerating diet Hypertension resume home meds Diabetes; Invokana on hold while in hospital, sliding scale insulin as needed DVT prophylaxis with subcu heparin Preventative health counseling performed for 17 minutes Disposition: FL- TO HOME OR SELFCARE Time spent for discharge: 33 mins Core Measure Documentation - Palliative Care Palliative Care/ Comfort Measures: Not Applicable - Core Measures Any of the following diagnoses?: none Exam - Constitutional Vitals: Temp Pulse Resp BP Pulse Ox 98.2 F 98 H 18 144/68 99 11/29/19 07:29 11/29/19 09:18 11/29/19 07:29 11/29/19 09:18 11/29/19 07:29 General appearance: Present: no acute distress, well-nourished - EENT Eyes: Present: PERRL ENT: hearing intact, clear oral mucosa - Neck Neck: Present: supple, normal ROM - Respiratory Respiratory effort: normal Respiratory: bilateral: CTA - Cardiovascular Heart Sounds: Present: S1 & S2. Absent: rub, click - Extremities Extremities: pulses symmetrical, No edema Peripheral Pulses: within normal limits - Abdominal General gastrointestinal: Present: soft, non-tender, non-distended, normal bowel sounds Female genitourinary: Present: normal - Integumentary Integumentary: Present: clear, warm, dry - Musculoskeletal Musculoskeletal: gait normal, strength equal bilaterally - Psychiatric Psychiatric: appropriate mood/affect, intact judgment & insight - Neurologic Neurologic: CNII-XII intact, moves all extremities Plan Follow up with: ROXY REDMAN DO [Staff Physician] - 14 Days PRIMARY CARE, [Referring] - 3-5 Days Prescriptions: HYDROcodone/APAP 5-325 [Walnut 5-325 mg TAB] 2 each PO Q6H PRN #30 tablet PRN Reason: Pain, Moderate (4-6)
[2019-11-29 12:25] VITALS: BP 150/69
== END 2019-11-29 16:10 | disposition home or self-care (01) | DRG 345 ==
LOC: ED 14:26 → 3B-SURG 11-25 05:56
PROVIDERS: ADMIT Internal Medicine Geriatric Medicine; ATTEND Internal Medicine
PROC: 0DJD4ZZ Inspection of Lower Intestinal Tract, Percutaneous Endoscopic Approach (ICD-10-PCS; principal; 2019-11-25)
PROC: 0WUF0JZ Supplement Abdominal Wall with Synthetic Substitute, Open Approach (ICD-10-PCS; 2019-11-25)
DX: K43.6 Other and unspecified ventral hernia with obstruction, without gangrene (principal); Z68.42 Body mass index [BMI] 45.0-49.9, adult; J45.909 Unspecified asthma, uncomplicated; E66.01 Morbid (severe) obesity due to excess calories; E11.9 Type 2 diabetes mellitus without complications; I10 Essential (primary) hypertension; E78.5 Hyperlipidemia, unspecified; Z88.8 Allergy status to other drugs, medicaments and biological substances; Z88.6 Allergy status to analgesic agent; Z91.018 Allergy to other foods; Z71.3 Dietary counseling and surveillance
CPT/HCPCS: 36415; 74177; 80048; 82962; 83036; 85025; 86850; 86900; 86901; 88302; 96365; G0378; A9270-GY; C1781; C9113; J0330; J0690; J1170; J1644; J1885; J2270; J2405; J2704; J2765; J3010; J7030; J7120; Q9967